=== PATIENT | male | born 1990 | race African-American/Black ===

== ENCOUNTER 2016-05-12 15:18 | Emergency (ER) | payer OTHER ==
[2016-05-12 14:46] LABS: URINE APPEARANCE CLEAR; URINE BILIRUBIN NEG (NEG); URINE BLOOD NEG (NEG); URINE COLOR YELLOW; URINE GLUCOSE NEG (NORM); URINE KETONE NEG (NEG); URINE LEUKOCYTE ESTERASE NEG (NEG); URINE NITRATE NEG (NEG); URINE PH 7.5 (5-8); URINE PROTEIN NEG (NEG); URINE SOURCE CLEAN CATCH; URINE SPECIFIC GRAVITY 1.015 (1.003-1.035); URINE UROBILINOGEN 0.2 MG/DL (NORM)
[2016-05-12 15:00] LABS: MICRO INDICATED? NO
[~2016-05-12 15:18] MED LIST: NO MEDICATIONS; ZOFRAN ODT4 MG PO
== END 2016-05-12 16:23 | disposition home or self-care (01) ==
LOC: SED 15:18
PROVIDERS: Physician Assistant
DX: S29.012D Strain of muscle and tendon of back wall of thorax, subsequent encounter (principal); R51 Headache; Z88.1 Allergy status to other antibiotic agents; V89.2XXD Person injured in unspecified motor-vehicle accident, traffic, subsequent encounter
CPT/HCPCS: 81003; 96372; 99283; J1885